=== PATIENT | female | born 1990 | race Caucasian/White ===

== ENCOUNTER 2021-12-09 20:20 | Emergency (ER) | payer MEDICAID, SELFPAY ==
[2021-12-09 20:23] VITALS: BP 126/88; PULSE 88; RESP 20; TEMP 36.7; O2SAT 98
--- NOTE | 2021-12-09 21:06 | ED.PSYCH ---
HPI - Psych General Chief Complaint: Psychiatric Symptoms Stated Complaint: SI, Depression, Time Seen by Provider: 12/09/21 20:50 History of Present Illness HPI Narrative: This is a 30-year-old female with past medical history of depression, HIV and prior episodes of suicidal ideations, who presents to the emergency department with suicidal ideations. She states she is stressed due to her current . Last menstrual period was mid September she believes she is about 7 weeks . She denies other prompting incidences. She denies homicidal ideations or hallucinations. She does not have a specific plan. She states approximately 11 years ago she was admitted for suicidal ideations without attempt. Related Data Allergies Allergy/AdvReac Type Severity Reaction Status Date / Time No Known Allergies Allergy Verified 12/09/21 20:27 Review of Systems Review of Systems: CONSTITUTIONAL: Denies fever, chills, or sweats. EYES: Denies visual changes, redness, or discharge. ENT: Denies rhinorrhea, congestion, sore throat, or otalgia. CARDIOVASCULAR: Denies chest pain, palpitations, or edema. RESPIRATORY: Denies cough or dyspnea. GASTROINTESTINAL: Denies abdominal pain, nausea, vomiting, or diarrhea. GENITOURINARY: Denies dysuria or hematuria. SKIN: Denies rash or itching. MUSCULOSKELETAL: Chronic back pain denies joint pain, or myalgia. NEUROLOGIC: Headache Denies, numbness, dizziness, or weakness. PSYCHIATRIC: Depression Denies anxiety or hallucination Exam Narrative: GENERAL: Well-appearing, well-nourished, tearful HEAD: Normocephalic, atraumatic. EYES: PERRLA and EOMI. ENT: Nares clear, no rhinorrhea or epistaxis. Mucous membranes moist. Oropharynx without tonsillar hypertrophy exudate or other lesions. NECK: Supple. No adenopathy or masses. No carotid bruits or JVD CHEST: Clear to auscultation. No respiratory distress. No wheezes rales or rhonchi HEART: Regular rate and rhythm. No murmur heard. Normal peripheral pulses. ABDOMEN: Soft, nontender, nondistended, normal active bowel sounds. EXTREMITIES: Normal range of motion. No edema. SKIN: Warm, dry, no rash. NEURO: No focal deficits. Alert and oriented x3. PSYCH: Depressed with depressed affect Course Course Emergency Course: 22:17 - Bedside ultrasound demonstrates an intrauterine . There is no noted intraabdominal free fluid. 01:45 - Crisis counselor evaluated patient and created a safety plan. No indication for inpatient psychiatric management at this time. UA demonstrates white blood cells and leukocyte esterase, though also shows moderate epithelial cells. Discussed findings with the patient we will treat for UTI considering her current . The patient now complains of mild sore throat and chills. She tested negative for COVID. Will treat symptomatically. Discussed return and emergency precautions including signs/symptoms of sepsis and recurrent suicidal ideations. Patient voiced understanding is comfortable with the plan. All questions answered to her satisfaction. Vital Signs Vital signs: Vital Signs Temperature 98.1 F 12/09/21 20:23 Pulse Rate 88 12/09/21 20:23 Respiratory Rate 20 12/09/21 20:23 Blood Pressure 126/88 12/09/21 20:23 Pulse Oximetry 98 12/09/21 20:23 Oxygen Delivery Room Air 12/09/21 20:23 Temperature 98.1 F 12/09/21 20:23 Pulse Rate 88 12/09/21 20:23 Respiratory Rate 20 12/09/21 20:23 Blood Pressure 126/88 12/09/21 20:23 Pulse Oximetry 98 12/09/21 20:23 Oxygen Delivery Room Air 12/09/21 20:23 MDM - Psych MDM Narrative Medical decision making narrative: Plan: Labs, bedside ultrasound, psychiatric consultation, reassess Lab Data Result diagrams: 12/09/21 22:02 12/09/21 22:02 Labs: Lab Results 12/09/21 12/09/21 12/09/21 Range/Units 22:02 22:02 22:02 WBC 9.5 (4.5-10.0) K/mm3 RBC 4.03 L (4.2-5.4) M/mm3 Hgb 13.1 (1
[2021-12-09 22:08] LABS: Basophils Percent Auto 0.2 % (0.2-1.2); Eosinophils Absolute Auto 0.1 K/mm3 (0-0.3); Eosinophils Percent Auto 0.8 % (0-4.4); Hematocrit 38.2 % (37.0-47.0); Hemoglobin 13.1 g/dL (12.0-15.0); Immature Granulocyte Absolute 0.03 K/mm3 (0.00-0.031); Immature Granulocyte Percent A 0.3 % (0-0.5); Lymphocytes Absolute Auto 1.69 K/mm3 (0.9-3.2); Lymphocytes Percent Auto 17.8 % (18.3-44.2); Mean Corpuscular HGB Conc 34.3 g/dl (32-36); Mean Corpuscular Hemoglobin 32.5 pg (26-34); Mean Corpuscular Volume 94.8 fl (80-100); Mean Platelet Volume 10.4 fl (7.4-10.4); Monocytes Absolute Auto 0.4 K/mm3 (0.1-0.6); Monocytes Percent Auto 4.2 % (2.6-8.5); Neutrophils Absolute Auto 7.3 K/mm3 (1.3-6.7); Neutrophils Percent Auto 76.7 % (45.5-73.1); Platelet Count Result 222 k/mm3 (150-375); Red Blood Count 4.03 M/mm3 (4.2-5.4); Red Cell Distribution Width 11.4 % (11.5-14.5); White Blood Count 9.5 K/mm3 (4.5-10.0)
[2021-12-09 22:18] LABS: Appearance Urine Clear (Clear); Bilirubin Urine Negative (Negative); Blood Urine Negative (Negative); Color Urine Yellow (Yellow); Glucose Urine UA Negative (Negative); Ketones Urine 3+ mg/dL (Negative); Leukocyte Esterase Ur 1+ LEU/UL (Negative); Nitrate Urine Negative (Negative); Protein Urine Negative (Negative); Urobilinogen Urine 0.2 mg/dL (<2.0)
[2021-12-09 22:20] LABS: Alanine Aminotransferase 19 U/L (6-35); Albumin Level 4.6 g/dL (3.5-5.1); Alkaline Phosphatase 47 U/L (38-126); Anion Gap 18 mmol/L (8-16); Aspartate Amino Transferase 27 U/L (14-36); Bilirubin,Total 0.4 mg/dL (0.2-1.3); Blood Urea Nitrogen 8 mg/dL (7-17); Calcium 8.6 mg/dL (8.4-10.2); Carbon Dioxide 20 mmol/L (22-30); Chloride 101 mmol/L (98-107); Estimated CRCL calculation 83 ml/min; Estimated Glomerular Filt Rate > 60; Glucose 96 mg/dL (65-110); Potassium 3.4 mmol/L (3.4-5.0); Sodium 139 mmol/L (137-145)
[2021-12-09 22:21] LABS: Acetaminophen < 10 ug/mL (10-30); Ethanol < 10 mg/dL (<10); Salicylate < 1.0 mg/dL (2-20)
[2021-12-09] MEDS: ACETAMINOPHEN 500 MG TABLET 1000 MG PO (22:31)
[2021-12-09 22:32] LABS: Amphetamine Screen Urine Negative (Negative); Barbiturate Screen Urine Negative (Negative); Benzodiazepines Screen Urine Negative (Negative); Cannabinoid Screen Urine Positive (Negative); Cocaine Screen Urine Negative (Negative); Methadone Screen Urine Negative (Negative); Opiate Screen Urine Negative (Negative); Phencyclidine Screen Urine Negative (Negative)
[2021-12-09 22:53] LABS: Add Urine Microscopic? YES
[2021-12-09 22:56] LABS: RBC Urine None seen /hpf (0-2); Squamous Epithelial Cell Urine Moderate /hpf (Few); WBC Urine 21-30 /hpf
[2021-12-09 22:58] LABS: Bacteria Urine 1+ /hpf; Mucus Urine None seen /lpf
[2021-12-09 23:27] LABS: SARS-CoV-2 RNA PCR Negative
== END 2021-12-10 02:17 | disposition home or self-care (01) ==
PROVIDERS: Emergency Provider Preventive Medicine Aerospace Medicine
DX: O99.341 Other mental disorders complicating pregnancy, first trimester (principal); F32.A Depression, unspecified; O23.41 Unspecified infection of urinary tract in pregnancy, first trimester; O99.511 Diseases of the respiratory system complicating pregnancy, first trimester; J06.9 Acute upper respiratory infection, unspecified; O98.711 Human immunodeficiency virus [HIV] disease complicating pregnancy, first trimester; Z21 Asymptomatic human immunodeficiency virus [HIV] infection status; Z20.822 Contact with and (suspected) exposure to COVID-19; Z3A.01 Less than 8 weeks gestation of pregnancy
CPT/HCPCS: 36415; 80053; 80307; 81001; 84443; 85025; 87086; 87088; 99284; A9270; C9803; U0003; U0005